=== PATIENT | female | born 1995 | race African-American/Black ===

== ENCOUNTER 2017-02-24 11:22 | Emergency (ER) | payer MEDICAID ==
[~2017-02-24] VITALS: Ht 162.6 cm; Wt 59.4 kg
[~2017-02-24 11:22] MED LIST: CITA20TA5 PO; MELA10TA PO
[2017-02-24] MEDS ORDERED: SODIUM CHLORIDE 0.9% 1,000 ML IV ONE (12:02)
[2017-02-24] MEDS ORDERED: MAALOX/HYOSCYAMINE/LIDOCAINE 45 ML BOTTLE ONE (12:22)
[2017-02-24] MEDS ORDERED: MORPHINE SULFATE 4 MG/ML, 1ML ONE (12:22)
[2017-02-24] MEDS ORDERED: ONDANSETRON 2MG/ML, 2ML ONE (12:23)
[2017-02-24] MEDS ORDERED: FAMOTIDINE 20 MG/2 ML ONE (12:23)
[2017-02-24] MEDS ORDERED: MAALOX/HYOSCYAMINE/LIDOCAINE 45 ML BOTTLE PO ONE (12:30)
[2017-02-24] MEDS ORDERED: MORPHINE SULFATE 4 MG/ML, 1ML IVPush PRN (12:30)
[2017-02-24] MEDS ORDERED: ONDANSETRON 2MG/ML, 2ML IVPush ONE (12:30)
[2017-02-24] MEDS ORDERED: FAMOTIDINE 20 MG/2 ML IVP ONE (12:30)
[2017-02-24 12:31] LABS: ASPARTATE AMINO TRANSFERASE 18 U/L (15-37); BLOOD UREA NITROGEN 16 mg/dL (7-18)
[2017-02-24] MEDS ORDERED: RISP4TAB34 PO (12:58)
[2017-02-24] MEDS ORDERED: DIVA250T4 PO (12:58)
[2017-02-24 13:40] LABS: HCG UR OBC PASS
[2017-02-24 14:46] VITALS: BP 99/61
== END 2017-02-24 15:09 | disposition home or self-care (01) ==
LOC: ED 13:42
DX: N30.00 Acute cystitis without hematuria (principal); F12.10 Cannabis abuse, uncomplicated
CPT/HCPCS: 36415; 74000; 76700; 80053; 81001; 81025; 83690; 85025; 87077; 87086; 87186; 96361; 96374; 96375; 99285; J2405; J7030; S0028

== ENCOUNTER 2017-10-05 09:19 | Observation (INO) | payer MEDICAID ==
[~2017-10-05] VITALS: Ht 165.1 cm; Wt 56.8 kg
[~2017-10-05 09:19] MED LIST changes: +DIVA250T4 PO; +RISP4TAB34 PO
[2017-10-05 10:19] LABS: BASOPHILS # (AUTO) 0.04 x10^3/uL (0-0.1); BASOPHILS % (AUTO) 1 % (0-1); EOSINOPHILS # (AUTO) 0.04 x10^3/uL (0-0.4); EOSINOPHILS % (AUTO) 1 % (1-7); LYMPHOCYTES # (AUTO) 0.92 x10^3/uL (1-3.4); LYMPHOCYTES % (AUTO) 9 % (22-44); MD NO; MEAN CORPUSCULAR HEMOGLOBIN 26.4 pg (27.0-34.8); MEAN CORPUSCULAR HGB CONC 32.4 g/dL (32.4-35.8); MEAN CORPUSCULAR VOLUME 81.5 fL (80-100); MEAN PLATELET VOLUME 8.1 fL (7.4-10.4); MONOCYTES # (AUTO) 0.55 x10^3/uL (0.2-0.8); MONOCYTES % (AUTO) 6 % (2-9); NEUTROPHILS # (AUTO) 8.28 x10^3/uL (1.8-6.8); NEUTROPHILS % (AUTO) 84 % (42-75); PLATELET COUNT 241 x10^3/uL (130-400); RED BLOOD COUNT 4.79 x10^6/uL (3.82-5.3); RED CELL DISTRIBUTION WIDTH 14.3 % (9.6-15.2)
[2017-10-05 10:30] LABS: ALBUMIN 3.5 g/dL (3.4-5.0); ANION GAP 6 mmol/L (5-15); CALCIUM 8.2 mg/dL (8.5-10.1); CHLORIDE 106 mmol/L (98-107); CREATININE 0.74 mg/dL (0.55-1.02)
[2017-10-05 10:31] LABS: SALICYLATE LEVEL < 1.7 mg/dL (2.8-20.0)
[2017-10-05 10:37] LABS: ACETAMINOPHEN < 2 mcg/mL (10-30)
[2017-10-05 10:50] LABS: ALANINE AMINOTRANSFERASE 19 U/L (12-78)
[2017-10-05 10:51] LABS: ALKALINE PHOSPHATASE 66 U/L (45-117); BILIRUBIN,TOTAL 0.4 mg/dL (0.2-1.0); TOTAL PROTEIN 7.3 g/dL (6.4-8.2)
[2017-10-05 11:25] LABS: BARBITURATE SCREEN, URINE Negative (Negative); BENZODIAZEPINE SCREEN, URINE Negative (Negative); CANNABINOID SCREEN, URINE Positive (Negative); COCAINE SCREEN, URINE Negative (Negative); METHADONE SCREEN, URINE Negative (Negative); OPIATE SCREEN, URINE Negative (Negative)
[2017-10-05 11:26] LABS: AMPHETAMINE SCREEN, URINE Negative (Negative)
[2017-10-05 12:44] LABS: MICROSCOPIC INDICATED
[2017-10-05] MEDS ORDERED: POLYETHYLENE GLYCOL 17 GM PACKET PO PRN (13:00)
[2017-10-05] MEDS ORDERED: ACETAMINOPHEN 325 MG TABLET PO PRN (13:00)
[2017-10-05] MEDS ORDERED: LORazepam 2 MG/ML, 1ML IM PRN (13:00)
[2017-10-05 13:41] VITALS: BP 103/70
[2017-10-05] MEDS ORDERED: RISPERIDONE 1 MG TABLET ONE (19:24)
[2017-10-05 19:34] VITALS: BP 95/71
[2017-10-05] MEDS: DIVALPROEX 250 MG TABLET.DR PO SCH (22:11)
[2017-10-05] MEDS: MELATONIN 5 MG TABLET PO SCH (22:11)
[2017-10-05] MEDS: RISPERIDONE 1 MG TABLET PO SCH (22:11)
[2017-10-06 08:00] VITALS: BP 96/64
[2017-10-06 08:15] LABS: ALBUMIN 3.3 g/dL (3.4-5.0); ANION GAP 3 mmol/L (5-15); CALCIUM 8.9 mg/dL (8.5-10.1); CHLORIDE 105 mmol/L (98-107); CREATININE 0.82 mg/dL (0.55-1.02)
[2017-10-06 08:32] LABS: BASOPHILS # (AUTO) 0.05 x10^3/uL (0-0.1); BASOPHILS % (AUTO) 1 % (0-1); EOSINOPHILS % (AUTO) 2 % (1-7); LYMPHOCYTES # (AUTO) 2.08 x10^3/uL (1-3.4); LYMPHOCYTES % (AUTO) 30 % (22-44); MD NO; MEAN CORPUSCULAR HEMOGLOBIN 26.5 pg (27.0-34.8); MEAN CORPUSCULAR HGB CONC 32.4 g/dL (32.4-35.8); MEAN CORPUSCULAR VOLUME 81.8 fL (80-100); MEAN PLATELET VOLUME 8.6 fL (7.4-10.4); MONOCYTES # (AUTO) 0.52 x10^3/uL (0.2-0.8); MONOCYTES % (AUTO) 8 % (2-9); NEUTROPHILS # (AUTO) 4.11 x10^3/uL (1.8-6.8); NEUTROPHILS % (AUTO) 60 % (42-75); PLATELET COUNT 251 x10^3/uL (130-400); RED CELL DISTRIBUTION WIDTH 14.1 % (9.6-15.2)
[2017-10-06] MEDS: CITALOPRAM 20 MG TABLET PO SCH (09:31)
[2017-10-06] MEDS: DIVALPROEX 250 MG TABLET.DR PO SCH ×2 (09:31→20:49)
[2017-10-06] MEDS: SENNA/DOCUSATE TABLET PO SCH (09:31)
[2017-10-06] MEDS: AMOXICILLIN/CLAV 875-125MG TABLET PO SCH ×2 (12:24→20:49)
[2017-10-06 19:43] VITALS: BP 107/73
[2017-10-06] MEDS: RISPERIDONE 1 MG TABLET PO SCH (20:49)
[2017-10-06] MEDS: MELATONIN 5 MG TABLET PO SCH (20:50)
[2017-10-07 08:05] VITALS: BP 110/71
[2017-10-07] MEDS: AMOXICILLIN/CLAV 875-125MG TABLET PO SCH (08:23)
[2017-10-07] MEDS: DIVALPROEX 250 MG TABLET.DR PO SCH (08:24)
[2017-10-07] MEDS: CITALOPRAM 20 MG TABLET PO SCH (08:24)
[2017-10-07] MEDS: SENNA/DOCUSATE TABLET PO SCH (08:27)
== END 2017-10-07 17:53 ==
LOC: ED 11:37 → EDIP 11:38 → ED 11:56 → 2N 13:36
PROVIDERS: ADMIT Hospitalist; ATTEND Hospitalist
DX: R45.851 Suicidal ideations (principal); F32.9 Major depressive disorder, single episode, unspecified; F41.1 Generalized anxiety disorder; L03.90 Cellulitis, unspecified; N39.0 Urinary tract infection, site not specified; F60.3 Borderline personality disorder
CPT/HCPCS: 36415; 80048; 80053; 80307; 80329; 81001; 81025; 82040; 83735; 84703; 85025; 87086; 87147; 93005; 99285; G0378; G0480

== ENCOUNTER 2018-04-05 22:56 | Emergency (ER) | payer MEDICAID ==
[~2018-04-05] VITALS: Ht 162.6 cm; Wt 55.1 kg
[~2018-04-05 22:56] MED LIST changes: -CITA20TA5 PO; +CITA20TA6 PO
[2018-04-05 22:58] VITALS: BP 110/73
== END 2018-04-05 23:28 | disposition home or self-care (01) ==
LOC: ED 23:22
DX: F32.9 Major depressive disorder, single episode, unspecified (principal); Z76.0 Encounter for issue of repeat prescription
CPT/HCPCS: 99283